=== PATIENT | female | born 1970 | race Caucasian/White ===

== ENCOUNTER 2018-07-12 14:28 | Outpatient (CLI) | payer BC | END 2018-07-12 14:29 | disposition home or self-care (01) | LOC: BICRAD 14:28 | PROVIDERS: ATTEND Internal Medicine | DX: M25.552 Pain in left hip (principal); M25.551 Pain in right hip; M25.561 Pain in right knee; M25.562 Pain in left knee; M79.641 Pain in right hand; M79.642 Pain in left hand; M16.11 Unilateral primary osteoarthritis, right hip ==

== ENCOUNTER 2018-08-02 20:30 | Outpatient (CLI) | payer BC | END 2018-08-02 20:31 | disposition home or self-care (01) | LOC: SLEEPLAB 20:30 | PROVIDERS: ATTEND Internal Medicine Pulmonary Disease | DX: G47.33 Obstructive sleep apnea (adult) (pediatric) (principal); G47.10 Hypersomnia, unspecified | CPT/HCPCS: 95810 ==

== ENCOUNTER 2018-08-27 19:30 | Outpatient (CLI) | payer BC | END 2018-08-27 19:31 | disposition home or self-care (01) | LOC: SLEEPLAB 19:30 | PROVIDERS: ATTEND Internal Medicine Pulmonary Disease | DX: G47.33 Obstructive sleep apnea (adult) (pediatric) (principal); Z68.37 Body mass index [BMI] 37.0-37.9, adult | CPT/HCPCS: 95811 ==

== ENCOUNTER 2022-06-01 08:33 | Outpatient (CLI) | payer BC | END 2022-06-01 08:34 | disposition home or self-care (01) | LOC: BICRAD 08:33 | PROVIDERS: ATTEND Family Medicine | DX: J40 Bronchitis, not specified as acute or chronic (principal) | CPT/HCPCS: 71046 ==

== ENCOUNTER 2022-12-09 15:52 | Outpatient (CLI) | payer BC | END 2022-12-09 15:53 | disposition home or self-care (01) | LOC: RAD 15:52 | PROVIDERS: ATTEND Family Medicine | DX: S63.254D Unspecified dislocation of right ring finger, subsequent encounter (principal) ==

== ENCOUNTER 2023-08-31 15:14 | Outpatient (CLI) | payer BC | END 2023-08-31 15:15 | disposition home or self-care (01) | LOC: BICMAMMO 15:14 | PROVIDERS: ATTEND Family Medicine | DX: Z12.31 Encounter for screening mammogram for malignant neoplasm of breast (principal); Z80.3 Family history of malignant neoplasm of breast; Z91.89 Other specified personal risk factors, not elsewhere classified | CPT/HCPCS: 77063; 77067 ==